=== PATIENT | male | born 1970 | race Hispanic/Latino ===

== ENCOUNTER 2018-06-09 19:14 | Emergency (ER) | payer SELFPAY ==
--- NOTE | 2018-06-09 20:10 | RAD ---
LEFT SMALL DIGIT RADIOGRAPHS THREE VIEWS: 06/09/2018 PROVIDED CLINICAL HISTORY: Swelling and pain. FINDINGS: There is no evidence for fracture or other acute osseous abnormality. Alignment appears anatomic. J oint spaces appear preserved. Nonspecific prominence of the soft tissues of the 5th digit. IMPRESSION: No evidence for an acute osseous abnormality. POS: [facility]
[2018-06-09] MEDS ORDERED: Ketorolac Tromethamine 30 MG/ML VIAL ONE (20:12)
[2018-06-09] MEDS ORDERED: cefTRIAXone\\ROCEPHIN 250 MG VIAL ONE (20:12)
[2018-06-09] MEDS ORDERED: Lidocaine 1% PF 5 ML VIAL ONE (20:12)
[2018-06-09] MEDS ORDERED: cefTRIAXone\\ROCEPHIN 1 GM VIAL ONE (20:13)
== END 2018-06-09 20:47 | disposition home or self-care (01) ==
LOC: ERS 19:14
DX: L03.012 Cellulitis of left finger (principal); F17.210 Nicotine dependence, cigarettes, uncomplicated
CPT/HCPCS: 96372; J0696; J1885; J2001